=== PATIENT | male | born 1950 | race African-American/Black ===

== ENCOUNTER 2018-10-22 13:00 | Emergency (ER) | payer OTHER ==
[~2018-10-22] VITALS: Ht 182.9 cm; Wt 73.0 kg
[2018-10-22] MEDS ORDERED: METF-815 PO (13:16)
[2018-10-22] MEDS ORDERED: GLIP10TA10 PO (13:16)
[2018-10-22] MEDS ORDERED: CEFTRIAXONE SODIUM 250 MG/VIAL IM ONE (13:45)
[2018-10-22] MEDS ORDERED: AZITHROMYCIN 500 MG TABLET PO ONE (13:45)
[2018-10-22 15:38] VITALS: BP 132/76
== END 2018-10-22 15:41 | disposition home or self-care (01) ==
LOC: ER 13:00
DX: N48.89 Other specified disorders of penis (principal); R03.0 Elevated blood-pressure reading, without diagnosis of hypertension; I10 Essential (primary) hypertension; E11.9 Type 2 diabetes mellitus without complications; Z87.828 Personal history of other (healed) physical injury and trauma
CPT/HCPCS: 76870; 93976; 96372; 99284; J0696